=== PATIENT | female | born 1985 | race African-American/Black ===

== ENCOUNTER 2021-04-15 11:21 | Emergency (ER) | payer OTHER ==
[~2021-04-15] VITALS: Ht 157.5 cm; Wt 68.2 kg
[2021-04-15 11:24] VITALS: BP 111/68
== END 2021-04-15 13:17 | disposition home or self-care (01) ==
LOC: EMS 11:21
DX: L30.4 Erythema intertrigo (principal); F12.90 Cannabis use, unspecified, uncomplicated
CPT/HCPCS: 99283; Z7502